=== PATIENT | male | born 1990 | race Caucasian/White ===

== ENCOUNTER 2017-01-15 02:42 | Emergency (ER) | payer OTHER ==
[~2017-01-15] VITALS: Ht 185.4 cm; Wt 120.7 kg
[~2017-01-15 02:42] MED LIST: ACETAMINOPHEN500 MG PO; ACTOS15 MG PO; ADVAIR 100/501 DISK IH; AMOX TR-K CLV1 EAC4 PO; AMOXICILLIN500 M1 PO; AMOXICILLIN500 MG PO; AUGMENTIN875 MG PO; BACTRIM,SEPT1 TABLET PO; BACTROBAN NASAL1 G1 BOTH NARES; BREO ELLIPTA I1 EACH IH; BUTALBITAL-APA1 EACH PO; CLARITIN; CLARITIN10 M3 PO; DELTASONE20 M1 PO; DICLOFENAC SODI75 MG PO; ELAVIL10 MG PO; FLEXERIL10 MG PO; GABAPENTIN400 MG PO; GLUCOPHAGE1000 MG PO; HYCODAN SYRUP480 ML PO; HYDROCODON-ACE1 EAC7 PO; LEVAQUIN750 MG PO; LORAZEPAM0.5 MG PO; LORTAB 5-325 M1 EACH PO; MEDROL DOSEPAK4 MG PO; METFORMIN HCL1000 MG PO; METFORMIN HCL500 M1 PO; MOTRIN800 MG PO; NEURONTIN400 MG PO; NICOTINE PATCH1 EAC2 TD; NO HOME MEDS; NOHOMEMEDS; NORCO 5/3251 TABLET PO; NORCO 7.5/321 TABLET PO; OMEPRAZOLE20 MG PO; OXAYDO5 MG PO; PERCOCET 5/31 TABLET PO; PREDNISONE50 MG PO; PREVACID30 MG PO; TYLENOL REGULA325 MG PO; TYLENOL WITH C1 EACH PO; VALIUM5 MG PO; VENTOLIN HFA18 GM IH; VIBRAMYCIN100 MG PO; VICODIN 5-3001 EACH PO; VICODIN,LORT1 TABLET PO; VOLTAREN75 MG PO; ZOFRAN ODT4 MG PO; ZOFRAN4 MG PO; ZYRTEC10 M3 PO
[2017-01-15] MEDS ORDERED: MEDROL DOSEPAK4 MG PO (04:05)
[2017-01-15] MEDS ORDERED: LIDODERM 5% P1 PATCH TD (04:05)
[2017-01-15 04:17] VITALS: BP 134/74
== END 2017-01-15 04:18 | disposition home or self-care (01) ==
LOC: EME 02:42
DX: M25.512 Pain in left shoulder (principal)
CPT/HCPCS: 73030; 73080; 99281; 99284; J3301; S0020

== ENCOUNTER 2017-02-16 19:57 | Emergency (ER) | payer OTHER ==
[~2017-02-16] VITALS: Ht 185.4 cm; Wt 116.9 kg
[~2017-02-16 19:57] MED LIST changes: +LIDODERM 5% P1 PATCH TD
[2017-02-16 20:28] VITALS: BP 118/80
== END 2017-02-16 20:29 | disposition home or self-care (01) ==
LOC: EME 19:57
PROC: 08C9XZZ Extirpation of Matter from Left Cornea, External Approach (ICD-10-PCS; principal; 2017-02-16)
DX: T15.02XA Foreign body in cornea, left eye, initial encounter (principal); W20.8XXA Other cause of strike by thrown, projected or falling object, initial encounter; F17.200 Nicotine dependence, unspecified, uncomplicated
CPT/HCPCS: 99281; 99283

== ENCOUNTER 2017-05-15 20:37 | Emergency (ER) | payer OTHER ==
[~2017-05-15] VITALS: Ht 185.4 cm; Wt 126.0 kg
[2017-05-15] MEDS ORDERED: FLEXERIL10 MG PO (21:16)
[2017-05-15 21:35] VITALS: BP 134/70
== END 2017-05-15 21:45 | disposition home or self-care (01) ==
LOC: EME 20:37
DX: M54.12 Radiculopathy, cervical region (principal); G89.29 Other chronic pain; Z88.6 Allergy status to analgesic agent; F17.200 Nicotine dependence, unspecified, uncomplicated
CPT/HCPCS: 99281; 99284

== ENCOUNTER 2017-05-24 11:52 | Emergency (ER) | payer OTHER ==
[~2017-05-24] VITALS: Ht 182.9 cm; Wt 124.4 kg
[2017-05-24] MEDS ORDERED: KEFLEX500 MG PO (14:04)
[2017-05-24] MEDS ORDERED: NORCO 5/3251 TABLET PO (14:06)
[2017-05-24] MEDS ORDERED: BACTRIM,SEPT1 TABLET PO (14:06)
[2017-05-24 14:52] VITALS: BP 122/79
== END 2017-05-24 14:52 | disposition home or self-care (01) ==
LOC: EME 11:52 → RME 11:52
DX: L03.012 Cellulitis of left finger (principal); J45.909 Unspecified asthma, uncomplicated; Z86.14 Personal history of Methicillin resistant Staphylococcus aureus infection; E11.9 Type 2 diabetes mellitus without complications; F17.200 Nicotine dependence, unspecified, uncomplicated
CPT/HCPCS: 99281; 99284; J0696

== ENCOUNTER 2017-06-28 19:41 | Emergency (ER) | payer OTHER ==
[~2017-06-28] VITALS: Ht 185.4 cm; Wt 124.6 kg
[~2017-06-28 19:41] MED LIST changes: +KEFLEX500 MG PO
[2017-06-28] MEDS ORDERED: BACTRIM,SEPT1 TABLET PO (19:57)
[2017-06-28] MEDS ORDERED: KEFLEX500 MG PO (19:57)
[2017-06-28 20:09] VITALS: BP 130/67
== END 2017-06-28 20:10 | disposition home or self-care (01) ==
LOC: EME 19:41
DX: L02.511 Cutaneous abscess of right hand (principal); F17.200 Nicotine dependence, unspecified, uncomplicated
CPT/HCPCS: 99281; 99283

== ENCOUNTER 2017-07-26 06:16 | Emergency (ER) | payer OTHER ==
[~2017-07-26] VITALS: Ht 185.4 cm; Wt 122.1 kg
[2017-07-26 07:01] LABS: HEMATOCRIT 44.4 % (38.0-50.0); MCHC 33.1 G/DL (30.0-36.0); MCV 87.6 FL (86-99); MEAN PLAT.VOLUME 8.7 uM^3 (9.0-12.4); PLATELET COUNT 379 K/uL (156-360); RBC DIS.WIDTH-CV 12.6 % (11.8-14.6); RBC DIS.WIDTH-SD 40.1 % (39-53); RED BLOOD COUNT 5.07 M/uL (4.00-5.50); WHITE BLOOD COUNT 11.6 K/uL (4.1-10.2)
[2017-07-26 07:31] LABS: ANION GAP 9 MEQ/L (2-14); CHLORIDE 104 MEQ/L (99-109); POTASSIUM 3.5 MEQ/L (3.7-5.4); SAMPLE HEMOLYSIS CHECK 0; SAMPLE ICTERIC CHECK 0; SAMPLE LIPEMIA CHECK 0; SODIUM 139 MEQ/L (136-147)
[2017-07-26 07:36] LABS: GFR ESTIMATE (CALCULATED) > 59 mL/min/; GLUCOSE 106 mg/dL (70-99); UREA NITROGEN (BUN) 6 mg/dL (9-23)
[2017-07-26 07:40] LABS: TROP-I INTERPRETATION NEGATIVE; TROPONIN-I < 0.01 ng/mL (0.0-0.30)
[2017-07-26] MEDS ORDERED: PREDNISONE50 MG PO (08:28)
[2017-07-26 08:43] VITALS: BP 130/74
== END 2017-07-26 08:54 | disposition home or self-care (01) ==
LOC: EME 06:16
PROVIDERS: Emergency Medicine
DX: M54.9 Dorsalgia, unspecified (principal); J45.909 Unspecified asthma, uncomplicated; E11.9 Type 2 diabetes mellitus without complications; F17.200 Nicotine dependence, unspecified, uncomplicated
CPT/HCPCS: 71020; 80048; 84484; 85027; 93005; 94640; 99281; 99284; J2270; J7512

== ENCOUNTER 2018-04-20 11:09 | Emergency (ER) | payer OTHER ==
[~2018-04-20] VITALS: Ht 185.4 cm; Wt 115.5 kg
[2018-04-20] MEDS ORDERED: PREDNISONE10 MG PO (11:56)
[2018-04-20] MEDS ORDERED: BENADRYL50 MG PO (11:56)
[2018-04-20 12:04] VITALS: BP 168/84
== END 2018-04-20 12:05 | disposition home or self-care (01) ==
LOC: EME 11:09
DX: L30.9 Dermatitis, unspecified (principal); E11.9 Type 2 diabetes mellitus without complications; J45.909 Unspecified asthma, uncomplicated; F17.200 Nicotine dependence, unspecified, uncomplicated; Z88.6 Allergy status to analgesic agent; Z88.5 Allergy status to narcotic agent
CPT/HCPCS: 99281; 99284